=== PATIENT | male | born 1930 | race Caucasian/White ===

== ENCOUNTER 2016-10-31 18:32 | Observation (INO) | payer OTHER ==
[~2016-10-31] VITALS: Ht 170.2 cm; Wt 78.3 kg
[~2016-10-31 18:32] MED LIST: ASPERDRINK81 MG PO; AZOR 10/40 M1 TABLET PO; LIPITOR80 MG PO; LOPRESSOR25 MG PO; PEPCID40 MG PO; PLAVIX75 MG PO; TYLENOL EXTRA500 MG PO; VITAMIN D2000 INTUN PO; XALATAN2.5 ML BOTH EYES; ZYLOPRIM300 MG PO
[2016-10-31 19:29] LABS: HEMATOCRIT 30.4 % (38.0-50.0); MCHC 32.2 G/DL (30.0-36.0); MCV 99.3 FL (86-99); PLATELET COUNT 211 K/uL (156-360); RBC DIS.WIDTH-CV 14.9 % (11.8-14.6); RBC DIS.WIDTH-SD 51.2 % (39-53); RED BLOOD COUNT 3.06 M/uL (4.00-5.50); WHITE BLOOD COUNT 7.1 K/uL (4.1-10.2)
[2016-10-31 19:39] LABS: CHLORIDE 112 mEq/L (99-109); POTASSIUM 4.6 mEq/L (3.7-5.4); SODIUM 144 mEq/L (136-147)
[2016-10-31 19:41] LABS: GLUCOSE 156 mg/dL (70-99)
[2016-10-31 19:42] LABS: ANION GAP 9 MEQ/L (2-14)
[2016-10-31 19:45] LABS: GFR ESTIMATE (CALCULATED) 11 mL/min/; UREA NITROGEN (BUN) 56 mg/dL (9-23)
[2016-10-31 19:50] LABS: TROP-I INTERPRETATION NEGATIVE; TROPONIN-I 0.02 ng/mL (0.0-0.30)
[2016-10-31] MEDS ORDERED: VITAMIN D2000 UNIT PO (22:15)
[2016-10-31] MEDS ORDERED: CLONIDINE HCL0.1 MG PO (22:16)
[2016-10-31] MEDS ORDERED: AMLODIPINE BESYL5 MG PO (22:16)
[2016-10-31] MEDS ORDERED: DIOVAN320 MG PO (22:16)
[2016-11-01 00:52] LABS: D-DIMER ELISA > 4.00 mg/L FEU (< 0.57)
[2016-11-01 02:14] VITALS: BP 182/90
[2016-11-01 02:48] LABS: TROP-I INTERPRETATION NEGATIVE; TROPONIN-I 0.03 ng/mL (0.0-0.30)
[2016-11-01 04:25] VITALS: BP 136/71
[2016-11-01 08:41] LABS: HEMATOCRIT 27.4 % (38.0-50.0); MCH 31.9 PG (29.0-34.0); MCHC 32.5 G/DL (30.0-36.0); MCV 98.2 FL (86-99); MEAN PLAT.VOLUME 10.5 uM^3 (9.0-12.4); PLATELET COUNT 176 K/uL (156-360); RBC DIS.WIDTH-CV 15.2 % (11.8-14.6); RBC DIS.WIDTH-SD 54.1 % (39-53); RED BLOOD COUNT 2.79 M/uL (4.00-5.50); WHITE BLOOD COUNT 5.9 K/uL (4.1-10.2)
[2016-11-01 09:01] VITALS: BP 153/79
[2016-11-01 09:06] LABS: ALKALINE PHOSPHATASE 88 IU/L (3-129); ANION GAP 8 MEQ/L (2-14); CHLORIDE 110 MEQ/L (99-109); GFR ESTIMATE (CALCULATED) 13 mL/min/; SAMPLE HEMOLYSIS CHECK 0; SAMPLE ICTERIC CHECK 0; SAMPLE LIPEMIA CHECK 0; SODIUM 141 MEQ/L (136-147); TOTAL BILIRUBIN 0.3 MG/DL (0.0-1.0); UREA NITROGEN (BUN) 50 mg/dL (9-23)
[2016-11-01 09:08] LABS: GLUCOSE 103 mg/dL (70-99)
[2016-11-01 09:26] LABS: TROP-I INTERPRETATION NEGATIVE; TROPONIN-I 0.02 ng/mL (0.0-0.30)
[2016-11-01] MEDS ORDERED: AZITHROMYCIN500 M1 PO (14:08)
[2016-11-01] MEDS ORDERED: CEFTIN250 MG PO (14:08)
== END 2016-11-01 15:05 | disposition home or self-care (01) ==
LOC: EME 18:32 → EDOF 23:17 → 5WEST 23:17 → EDOF 23:17 → 5WEST 11-01 01:37
PROVIDERS: Internal Medicine
DX: R07.9 Chest pain, unspecified (principal); J40 Bronchitis, not specified as acute or chronic; I12.9 Hypertensive chronic kidney disease with stage 1 through stage 4 chronic kidney disease, or unspecified chronic kidney disease; E11.22 Type 2 diabetes mellitus with diabetic chronic kidney disease; N18.4 Chronic kidney disease, stage 4 (severe); I71.4 Abdominal aortic aneurysm, without rupture; R94.31 Abnormal electrocardiogram [ECG] [EKG]; E78.5 Hyperlipidemia, unspecified; Z87.891 Personal history of nicotine dependence; Z85.820 Personal history of malignant melanoma of skin; Z98.890 Other specified postprocedural states; Z82.49 Family history of ischemic heart disease and other diseases of the circulatory system; Z80.1 Family history of malignant neoplasm of trachea, bronchus and lung; Z88.2 Allergy status to sulfonamides; Z88.5 Allergy status to narcotic agent
CPT/HCPCS: 71020; 78582; 80048; 80053; 83605; 84484; 85027; 85379; 87040; 87070; 87205; 87449; 93005; 99202; 99281; 99285; A9540; A9567; G0378; J0456; J0696; J1644; J7030; J7050

== ENCOUNTER 2017-01-24 12:54 | Inpatient (IN) | payer OTHER ==
[~2017-01-24] VITALS: Ht 170.2 cm; Wt 78.6 kg
[~2017-01-24 12:54] MED LIST changes: +AMLODIPINE BESYL5 MG PO; +AZITHROMYCIN500 M1 PO; +CEFTIN250 MG PO; +CLONIDINE HCL0.1 MG PO; +DIOVAN320 MG PO; +VITAMIN D2000 UNIT PO
[2017-01-24 13:31] LABS: HEMATOCRIT 26.2 % (38.0-50.0); MCH 31.2 PG (29.0-34.0); MCHC 31.7 G/DL (30.0-36.0); MCV 98.5 FL (86-99); MEAN PLAT.VOLUME 11.1 uM^3 (9.0-12.4); RBC DIS.WIDTH-CV 14.9 % (11.8-14.6); RBC DIS.WIDTH-SD 53.9 % (39-53); RED BLOOD COUNT 2.66 M/uL (4.00-5.50); WHITE BLOOD COUNT 6.2 K/uL (4.1-10.2)
[2017-01-24 13:32] LABS: PLATELET COUNT 114 K/uL (156-360)
[2017-01-24 13:39] LABS: CHLORIDE 114 mEq/L (99-109); POTASSIUM 5.4 mEq/L (3.7-5.4); SODIUM 140 mEq/L (136-147)
[2017-01-24 13:41] LABS: GLUCOSE 113 mg/dL (70-99)
[2017-01-24 13:42] LABS: ANION GAP 13 MEQ/L (2-14)
[2017-01-24 13:45] LABS: GFR ESTIMATE (CALCULATED) 8 mL/min/
[2017-01-24 13:46] LABS: UREA NITROGEN (BUN) 79 mg/dL (9-23)
[2017-01-24 14:10] LABS: TROP-I INTERPRETATION NEGATIVE; TROPONIN-I 0.01 ng/mL (0.0-0.30)
[2017-01-24] MEDS ORDERED: LABETALOL HCL200 MG PO (14:27)
[2017-01-24] MEDS ORDERED: CALCITRIOL0.25 MCG PO (16:32)
[2017-01-24] MEDS ORDERED: ZYLOPRIM100 MG PO (16:32)
[2017-01-24] MEDS ORDERED: LO-DOSE ASPIRIN81 M2 PO (16:32)
[2017-01-24] MEDS ORDERED: VITAMIN D31000 UNIT PO (16:32)
[2017-01-24] MEDS ORDERED: ZOFRAN4 MG PO (16:33)
[2017-01-24 17:28] VITALS: BP 181/79
[2017-01-24 20:00] VITALS: BP 155/80
[2017-01-24 20:05] LABS: TROP-I INTERPRETATION NEGATIVE; TROPONIN-I 0.03 ng/mL (0.0-0.30)
[2017-01-24 23:19] VITALS: BP 144/77
[2017-01-25 01:17] LABS: TROP-I INTERPRETATION NEGATIVE; TROPONIN-I 0.02 ng/mL (0.0-0.30)
[2017-01-25 03:33] VITALS: BP 162/80
[2017-01-25 06:24] LABS: HEMATOCRIT 25.1 % (38.0-50.0); MCH 31.1 PG (29.0-34.0); MCHC 31.1 G/DL (30.0-36.0); MEAN PLAT.VOLUME 10.9 uM^3 (9.0-12.4); PLATELET COUNT 144 K/uL (156-360); RBC DIS.WIDTH-SD 54.6 % (39-53); RED BLOOD COUNT 2.51 M/uL (4.00-5.50); WHITE BLOOD COUNT 7.5 K/uL (4.1-10.2)
[2017-01-25 06:36] LABS: INTER. NORMALIZED RATIO 1.1; PTT 27.9 (25-32)
[2017-01-25 06:51] LABS: ANION GAP 10 MEQ/L (2-14); CHLORIDE 111 MEQ/L (99-109); GFR ESTIMATE (CALCULATED) 9 mL/min/; GLUCOSE 113 mg/dL (70-99); POTASSIUM 4.8 MEQ/L (3.7-5.4); SAMPLE HEMOLYSIS CHECK 0; SAMPLE ICTERIC CHECK 0; SAMPLE LIPEMIA CHECK 0; SODIUM 141 MEQ/L (136-147); UREA NITROGEN (BUN) 72 mg/dL (9-23)
[2017-01-25 08:13] VITALS: BP 157/76
[2017-01-25 11:25] VITALS: BP 157/69
[2017-01-25 11:27] VITALS: BP 152/69
[2017-01-25 11:28] VITALS: BP 147/78
[2017-01-25] MEDS ORDERED: AMLODIPINE BESYL5 MG PO (16:24)
[2017-01-25] MEDS ORDERED: NABI650T PO (16:24)
[2017-01-25 16:46] VITALS: BP 169/79
[2017-01-25] MEDS ORDERED: AMLODIPINE BESY10 MG PO (18:08)
== END 2017-01-25 19:09 | disposition hospice, home (50) | DRG 312 ==
LOC: EME 12:54 → EDOF 15:46 → 5WEST 17:11 → 3EAST 17:40 → 5WEST 17:40 → 3EAST 22:57
PROVIDERS: Emergency Medicine; Internal Medicine Nephrology; Physician Assistant Medical
DX: R55 Syncope and collapse (principal); T44.8X5A Adverse effect of centrally-acting and adrenergic-neuron-blocking agents, initial encounter; E87.2 Acidosis; I12.0 Hypertensive chronic kidney disease with stage 5 chronic kidney disease or end stage renal disease; N18.6 End stage renal disease; N25.81 Secondary hyperparathyroidism of renal origin; S00.83XA Contusion of other part of head, initial encounter; W18.39XA Other fall on same level, initial encounter; Y92.009 Unspecified place in unspecified non-institutional (private) residence as the place of occurrence of the external cause; E78.5 Hyperlipidemia, unspecified; K21.9 Gastro-esophageal reflux disease without esophagitis; D63.1 Anemia in chronic kidney disease; Z86.73 Personal history of transient ischemic attack (TIA), and cerebral infarction without residual deficits; Z88.2 Allergy status to sulfonamides; Z66 Do not resuscitate
CPT/HCPCS: 70450; 70486; 71020; 72125; 73030; 73060; 80048; 80069; 81003; 84484; 85027; 85610; 85730; 93005; 99281; 99285; J1644; J2270; J2405; J7030; J7040